=== PATIENT | male | born 1985 | race Caucasian/White ===

== ENCOUNTER 2018-11-17 12:56 | Emergency (ER) | payer OTHER ==
[~2018-11-17] VITALS: Ht 165.1 cm; Wt 68.0 kg
[2018-11-17 13:23] LABS: ABSOLUTE NEUTROPHILS 4.1 thou/uL (1.4-8.2); BASOPHILS 0.6 % (0.0-2.0); EOSINOPHILS 3.4 % (0.0-3.0); HEMATOCRIT 43.4 % (42.0-52.0); HEMOGLOBIN 14.8 gm/dL (14.0-18.0); LYMPHOCYTES 36.5 % (24.0-44.0); MCH 31.3 pg (26.0-34.0); MCV 92.1 fL (80.0-100.0); MONOCYTES 8.4 % (1.0-8.0); PLATELET COUNT 299 thou/uL (150-400); POLYS 51.1 % (36.0-66.0); RBC 4.72 mil/uL (4.50-6.00); RDW 13.6 % (10.5-14.5); WBC 7.9 thou/uL (4.0-11.0)
[2018-11-17 13:26] LABS: ANION GAP 12 mmol/L (7-16); BUN 15 mg/dL (7-18); CALCIUM 9.2 mg/dL (8.5-10.1); CHLORIDE 105 mmol/L (98-107); CO2 24 mmol/L (21-32); GLUCOSE 120 mg/dL (74-106); POTASSIUM 3.6 mmol/L (3.5-5.1); SODIUM 141 mmol/L (136-145)
[2018-11-17 13:37] LABS: ALBUMIN 4.3 g/dL (3.4-5.0); MAGNESIUM 1.9 mg/dL (1.8-2.4); SGOT 22 U/L (15-37); SGPT 28 U/L (30-65); TOTAL BILIRUBIN 0.3 mg/dL (<0.1-1.0); TROPONIN-I <0.06 ng/mL (<0.06)
[2018-11-17] MEDS ORDERED: NAPROSYN500 MG PO (14:16)
[2018-11-17 15:41] VITALS: BP 126/86
--- NOTE | 2018-11-17 15:58 | EKG ---
[address] [address] ELECTROCARDIOGRAM REPORT Name: ROBINSON DOMINGUEZ Room #: REG AURELIANO Royal#: [id number] ������������������ Admission: 11/17/18 ������������������ Attend Phys: Discharge: ������������������ Date of : 89 Report #: [id number] ����������������������������������������������������������������� [id number] THIS REPORT FOR: //name// [facility] ED Test Date: 2018-11-17 Test Time: 12:58:34 Pat Name: ROBINSON DOMINGUEZ Department: Room: Gender: [employer]: [place] : 1985 Requested By: Ventura Cristina Order Number: [id number] MD: Ezequiel Conway Measurements Intervals [place] Rate: 106 P: 60 [place]: 146 QRS: 2 QRSD: 102 T: 22 QT: 318 QTc: 423 Interpretive Statements Sinus tachycardia Nonspecific T-wave abnormalities No previous ECG available for comparison Electronically Signed On 11-17-2018 15:58:19 CDT by Ezequiel Conway [email or web address] ��������������������������������������������� <ELECTRONICALLY SIGNED> ���������������������������������������� By: Ezequiel Conway MD ��������������������������������������������� 11/17/18 1558 [id number] Ezequiel Conway MD /EPI
== END 2018-11-17 15:45 | disposition home or self-care (01) ==
LOC: ER 12:56
PROVIDERS: Emergency Medicine
DX: R07.89 Other chest pain (principal); F17.210 Nicotine dependence, cigarettes, uncomplicated